=== PATIENT | male | born 1980 | race Caucasian/White ===

== ENCOUNTER 2017-02-28 14:17 | Emergency (ER) | payer SELFPAY ==
[~2017-02-28 14:17] MED LIST: AMOXICILLIN PO; FLEXERIL PO; IBUPROFEN PO; KEFLEX PO; KETOPROFEN PO; NO MEDICATIONS; VICODIN 5/500 T1 TAB PO
== END 2017-02-28 14:55 | disposition home or self-care (01) ==
LOC: CFTX 14:17
DX: S71.111A Laceration without foreign body, right thigh, initial encounter (principal); W26.0XXA Contact with knife, initial encounter; Y92.9 Unspecified place or not applicable
CPT/HCPCS: 12001; 99283